=== PATIENT | female | born 1980 | race Caucasian/White ===

== ENCOUNTER 2017-06-30 00:05 | Emergency (ER) | payer OTHER ==
[~2017-06-30] VITALS: Ht 172.7 cm; Wt 95.3 kg
[~2017-06-30 00:05] MED LIST changes: -BACTROBAN CREAM15 GM T; -DOXYCYCLINE HY100 M3 PO; -SEPTDS PO
[2017-06-30 00:14] VITALS: BP 147/98
[2017-06-30] MEDS ORDERED: BACTROBAN CREAM15 GM T (01:44)
[2017-06-30] MEDS ORDERED: SEPTDS PO (01:44)
[2017-06-30] MEDS ORDERED: DOXYCYCLINE HY100 M3 PO (01:44)
== END 2017-06-30 02:15 | disposition home or self-care (01) ==
LOC: ED 00:05
DX: L30.9 Dermatitis, unspecified (principal); F17.200 Nicotine dependence, unspecified, uncomplicated

== ENCOUNTER → 2017-06-30 | Outpatient (CLI) | payer OTHER ==
[~2017-06-30] MED LIST: ALBUTEROL0.09 MG/A2 IH; BACTROBAN CREAM15 GM T; DAYPRO600 M1 PO; DIFLUCAN150 MG PO; DOXYCYCLINE HY100 M3 PO; FLEXERIL10 MG PO; MEDROL DOSEPAK4 MG PO; MOTRIN600 MG PO; MOTRIN800 MG PO; NYSTATIN100000 U/M PO; PEN-VEE K500 MG PO; PERCOCET 325 MG1 TA2 PO; PREDNICOT10 MG PO; ROBAXIN750 MG PO; SEPTDS PO; TRAMADOL HCL50 MG; TRIMOX500 MG PO; ULTRAM50 MG PO; VIBRAMYCIN100 MG PO; VICODIN 5/500 505 MG PO; VICODIN 500 MG-1 TAB PO; VICODIN ES 7501 TAB PO
[2017-06-30 12:16] LABS: HEMATOCRIT 40.2 % (37.0-47.0); HEMOGLOBIN 13.7 g/dl (12.0-16.0); MEAN CELL VOLUME 90.7 fl (81.0-99.0); MEAN CORPUSCULAR HGB 30.9 pg (27.0-31.0); MEAN CORPUSCULAR HGB CONC 34.1 g/dl (33.0-37.0); RED BLOOD COUNT 4.43 10*6/uL (4.10-5.10); RED CELL DISTRI WIDTH 12.5 % (0-14.5); WHITE BLOOD COUNT 9.1 10*3/uL (4.8-10.8)
[2017-06-30 12:35] LABS: ALBUMIN 3.8 gm/dl (3.1-4.5); ALKALINE PHOSPHATASE 59 U/L (45-117); BUN 11 mg/dl (7-24); CHLORIDE 104 mmol/L (98-107); CREATININE 0.87 mg/dL (0.55-1.02); POTASSIUM 3.5 mmol/L (3.5-5.1); SGOT/AST 29 IU/L (3-35); SODIUM 138 mmol/L (136-145); TOTAL PROTEIN 7.8 gm/dL (6.4-8.2)
[2017-06-30 12:39] LABS: SGPT/ALT 49 U/L (12-78)
[2017-07-01 08:11] LABS: HEPATITIS B SURFACE AG Negative (Negative); HIV 1+2 AB + HIV1 P24 AG Non Reactive (Non Reactive)
[2017-07-01 19:05] LABS: HCV LOG10 6.634 (.); HEPATITIS C QUANTITATION 4310000 IU/mL (.)
[2017-07-02 11:38] LABS: HEPATITIS C VIRUS ANTIBODY >11.0 s/co (0.0-0.9)
== END | disposition home or self-care (01) ==
LOC: LAB 11:57
PROVIDERS: Family Medicine
DX: B19.20 Unspecified viral hepatitis C without hepatic coma (principal); L03.90 Cellulitis, unspecified; R53.83 Other fatigue; Z20.5 Contact with and (suspected) exposure to viral hepatitis

== ENCOUNTER → 2017-07-02 | Outpatient (CLI) | payer OTHER ==
[~2017-07-02] MED LIST changes: +BACTROBAN CREAM15 GM T; +DOXYCYCLINE HY100 M3 PO; +SEPTDS PO
== END | disposition home or self-care (01) ==
LOC: LAB 13:12
DX: B19.20 Unspecified viral hepatitis C without hepatic coma (principal)

== ENCOUNTER 2022-09-25 13:02 | Emergency (ER) | payer OTHER ==
[~2022-09-25] VITALS: Ht 172.7 cm; Wt 127.0 kg
[2022-09-25 15:58] LABS: BILIRUBIN Negative (Negative); BLOOD Negative (Negative); CLARITY Clear (Clear); COLOR Yellow (Yellow); GLUCOSE Negative (Negative); KETONE Negative (Negative); LEUKO ESTERASE Negative (Negative); NITRITE Negative (Negative); SPECIFIC GRAVITY <= 1.005 (1.001-1.030); UROBILINOGEN 0.2 E.U./dl (0.0-1.0)
[2022-09-25 16:17] LABS: RBC 0-2 rbc/hpf (0-2); WBC 0-2 wbc/hpf (0-5)
[2022-09-25 16:26] LABS: HEMATOCRIT 46.9 % (37.0-47.0); MEAN CORPUSCULAR HGB 30.7 pg (27.0-31.0); MEAN CORPUSCULAR HGB CONC 34.1 g/dl (33.0-37.0); MEAN PLATELET VOLUME 10.2 fl (9.6-12.3); PLATELET COUNT AUTOMATED 222 10*3/uL (130-400); RED BLOOD COUNT 5.21 10*6/uL (4.10-5.10); RED CELL DISTRI WIDTH 12.1 % (0-14.5); WHITE BLOOD COUNT 7.1 10*3/uL (4.8-10.8)
[2022-09-25 16:41] LABS: ALKALINE PHOSPHATASE 61 U/L (46-116); BUN 8 mg/dl (9-23); CHLORIDE 103 mmol/L (98-107); CREATININE 0.61 mg/dL (0.55-1.02); LIPASE 21 U/L (12-53); POTASSIUM 4.1 mmol/L (3.4-5.1); SGPT/ALT 10 U/L (10-49); TOTAL PROTEIN 7.4 gm/dL (6.0-8.0)
[2022-09-25 16:55] LABS: MANUAL DIFF REFLEX YES
[2022-09-25 16:58] LABS: BURR CELLS FEW; PLATELET SUFFICIENCY NORMAL (NORMAL); TOTAL CELLS COUNTED 100 #CELLS
[2022-09-25 17:11] VITALS: BP 145/110
== END 2022-09-25 20:20 | disposition home or self-care (01) ==
LOC: ED 13:02
PROVIDERS: Physician Assistant
DX: R10.9 Unspecified abdominal pain (principal)

== ENCOUNTER 2023-01-08 19:29 | Emergency (ER) | payer SELFPAY ==
[~2023-01-08] VITALS: Ht 172.7 cm; Wt 129.3 kg
[2023-01-08 20:00] VITALS: BP 126/80
[2023-01-08] MEDS ORDERED: CIPRO500 MG PO (21:49)
[2023-01-08] MEDS ORDERED: IBUPROFEN600 MG PO (21:49)
== END 2023-01-08 22:04 | disposition home or self-care (01) ==
LOC: ED 19:29
DX: S91.332A Puncture wound without foreign body, left foot, initial encounter (principal); J45.909 Unspecified asthma, uncomplicated; Z98.890 Other specified postprocedural states; W22.8XXA Striking against or struck by other objects, initial encounter; Y93.89 Activity, other specified; Y92.89 Other specified places as the place of occurrence of the external cause; Y99.8 Other external cause status

== ENCOUNTER 2023-09-17 17:10 | Emergency (ER) | payer OTHER ==
[~2023-09-17] VITALS: Ht 172.7 cm; Wt 127.0 kg
[~2023-09-17 17:10] MED LIST changes: +CIPRO500 MG PO; +IBUPROFEN600 MG PO
[2023-09-17 17:36] VITALS: BP 138/82
[2023-09-17] MEDS ORDERED: METHADONE10 MG/1 M1 PO (17:58)
[2023-09-17] MEDS ORDERED: MEDROL DOSEPAK4 MG PO (18:49)
[2023-09-17] MEDS ORDERED: ZANAFLEX4 MG PO (18:49)
[2023-09-17] MEDS ORDERED: NAPROSYN500 MG PO (18:49)
== END 2023-09-17 18:56 | disposition home or self-care (01) ==
LOC: ED 17:10
DX: S39.012A Strain of muscle, fascia and tendon of lower back, initial encounter (principal); M79.652 Pain in left thigh; J45.909 Unspecified asthma, uncomplicated; Z98.890 Other specified postprocedural states; X58.XXXA Exposure to other specified factors, initial encounter; Y93.89 Activity, other specified; Y92.89 Other specified places as the place of occurrence of the external cause; Y99.8 Other external cause status

== ENCOUNTER 2023-11-21 23:14 | Emergency (ER) | payer OTHER ==
[~2023-11-21] VITALS: Ht 172.7 cm; Wt 122.5 kg
[~2023-11-21 23:14] MED LIST changes: +METHADONE10 MG/1 M1 PO; +NAPROSYN500 MG PO; +ZANAFLEX4 MG PO
[2023-11-21 23:31] VITALS: BP 149/82
[2023-11-21] MEDS ORDERED: Amoxicillin/Clavulanate Pota 875 MG TAB PO ONE (23:45)
[2023-11-21] MEDS ORDERED: AMOX-CLAV 875-1 EACH PO (23:45)
== END 2023-11-21 23:53 | disposition home or self-care (01) ==
LOC: ED 23:14
DX: K04.7 Periapical abscess without sinus (principal); K02.9 Dental caries, unspecified; J45.909 Unspecified asthma, uncomplicated; Z98.890 Other specified postprocedural states

== ENCOUNTER 2024-10-22 06:38 | Emergency (ER) | payer OTHER ==
[~2024-10-22] VITALS: Ht 172.7 cm; Wt 127.0 kg
[~2024-10-22 06:38] MED LIST changes: +AMOX-CLAV 875-1 EACH PO
[2024-10-22 07:11] VITALS: BP 146/81
[2024-10-22] MEDS ORDERED: DULOXETINE HCL60 MG PO (07:12)
[2024-10-22] MEDS ORDERED: PREDNISONE20 M1 PO (08:03)
[2024-10-22] MEDS ORDERED: AMOX-CLAV 875-1 EACH PO (08:03)
[2024-10-22] MEDS ORDERED: INHAL AID 1 KIT DEVICE DEVI SCH (10:00)
== END 2024-10-22 08:15 | disposition home or self-care (01) ==
LOC: ED 06:38
DX: J45.909 Unspecified asthma, uncomplicated (principal); H66.92 Otitis media, unspecified, left ear; R11.2 Nausea with vomiting, unspecified; F17.200 Nicotine dependence, unspecified, uncomplicated; F19.10 Other psychoactive substance abuse, uncomplicated; Z98.890 Other specified postprocedural states

== ENCOUNTER → 2024-12-29 | Outpatient (CLI) | payer OTHER ==
[~2024-12-29] MED LIST changes: +DULOXETINE HCL60 MG PO; +PREDNISONE20 M1 PO
[2024-12-29 09:19] LABS: BASO % 0.5 % (0.0-1.0); EOS # 0.4 10*3/uL (0.0-0.4); EOS % 5.3 % (1.0-4.0); HEMATOCRIT 41.7 % (37.0-47.0); MEAN CELL VOLUME 89.5 fl (81.0-99.0); MEAN CORPUSCULAR HGB 29.6 pg (27.0-31.0); MEAN CORPUSCULAR HGB CONC 33.1 g/dl (33.0-37.0); MEAN PLATELET VOLUME 9.3 fl (9.6-12.3); MONO # 0.6 10*3/uL (0.1-1.0); MONO % 6.9 % (3.0-9.0); NEUT # 3.9 10*3/uL (2.3-7.9); NEUT % 47.8 % (47.0-73.0); PLATELET COUNT AUTOMATED 238 10*3/uL (130-400); RED BLOOD COUNT 4.66 10*6/uL (4.10-5.10); RED CELL DISTRI WIDTH 12.9 % (0-14.5); WHITE BLOOD COUNT 8.3 10*3/uL (4.8-10.8)
[2024-12-29 09:28] LABS: BILIRUBIN Negative (Negative); BLOOD Negative (Negative); CLARITY Cloudy (Clear); COLOR Yellow (Yellow); GLUCOSE Negative (Negative); KETONE Negative (Negative); LEUKO ESTERASE Negative (Negative); NITRITE Negative (Negative)
[2024-12-29 09:44] LABS: ALKALINE PHOSPHATASE 64 U/L (46-116); BUN 12 mg/dl (9-23); CHLORIDE 102 mmol/L (98-107); POTASSIUM 3.8 mmol/L (3.4-5.1); SGPT/ALT 13 U/L (5-49); TOTAL PROTEIN 7.1 gm/dL (6.0-8.0)
[2024-12-30 05:06] LABS: IMMUNOGLOBULIN G, Qn 1257 mg/dL (586-1602); IMMUNOGLOBULIN M, Qn 111 mg/dL (26-217)
[2024-12-30 18:07] LABS: CCP ANTIBODIES IGG/IGA 19 units (0-19)
[2025-01-01 11:07] LABS: ANTI-DSDNA ANTIBODIES <1 IU/mL (0-9)
== END | disposition home or self-care (01) ==
LOC: LAB 08:32
PROVIDERS: ATTEND Internal Medicine Rheumatology
DX: M25.561 Pain in right knee (principal); M25.562 Pain in left knee; M13.0 Polyarthritis, unspecified; R76.8 Other specified abnormal immunological findings in serum; M35.3 Polymyalgia rheumatica

== ENCOUNTER 2025-02-28 04:52 | Emergency (ER) | payer OTHER ==
[2025-02-28 04:59] VITALS: BP 155/90
[2025-02-28] MEDS ORDERED: Lidocaine Hydrochloride 15 ML UDC PO ONE (05:00)
[2025-02-28] MEDS ORDERED: Acetaminophen/Hydrocodone 5 MG/325 MG TABLET PO ONE (05:00)
[2025-02-28] MEDS ORDERED: Ondansetron Hydrochloride 4 MG TAB SL ONE (05:00)
[2025-02-28] MEDS ORDERED: PENICILLIN V POTASSIUM 500 MG TAB PO ONE (05:00)
[2025-02-28] MEDS ORDERED: PENICILLIN VK500 MG PO (05:03)
== END 2025-02-28 05:17 | disposition home or self-care (01) ==
LOC: ED 04:52
DX: K02.9 Dental caries, unspecified (principal); J45.909 Unspecified asthma, uncomplicated; Z79.899 Other long term (current) drug therapy; Z98.890 Other specified postprocedural states

== ENCOUNTER 2025-03-29 08:04 | Emergency (ER) | payer OTHER ==
[~2025-03-29] VITALS: Ht 172.7 cm; Wt 127.0 kg
[~2025-03-29 08:04] MED LIST changes: +PENICILLIN VK500 MG PO
[2025-03-29 08:14] VITALS: BP 137/72
[2025-03-29] MEDS ORDERED: METHADONE HYDRO40 M1 PO (08:16)
[2025-03-29] MEDS ORDERED: Dexamethasone Sodium Phospha 20 MG/5 ML VIAL IM ONE (09:45)
[2025-03-29] MEDS ORDERED: MEDROL DOSEPAK4 MG PO (09:46)
[2025-03-29] MEDS ORDERED: Cyclobenzaprine Hydrochlorid 10 MG TAB PO ONE (09:50)
== END 2025-03-29 09:58 | disposition home or self-care (01) ==
LOC: ED 08:04
DX: M54.50 Low back pain, unspecified (principal); M62.838 Other muscle spasm; J45.909 Unspecified asthma, uncomplicated; Z79.899 Other long term (current) drug therapy; Z98.890 Other specified postprocedural states

== ENCOUNTER 2025-07-03 23:38 | Emergency (ER) | payer OTHER ==
[~2025-07-03] VITALS: Ht 172.7 cm; Wt 122.5 kg
[~2025-07-03 23:38] MED LIST changes: +METHADONE HYDRO40 M1 PO
[2025-07-03 23:47] VITALS: BP 143/79
[2025-07-04] MEDS ORDERED: METHOCARBAMOL 750 MG TAB PO ONE (00:05)
[2025-07-04] MEDS ORDERED: PREDNISONE20 M1 PO (00:13)
[2025-07-04] MEDS ORDERED: METHOCARBAMOL750 M1 PO (00:13)
== END 2025-07-04 00:25 | disposition home or self-care (01) ==
LOC: ED 23:38
DX: M54.31 Sciatica, right side (principal); J45.909 Unspecified asthma, uncomplicated; F17.210 Nicotine dependence, cigarettes, uncomplicated; Z87.440 Personal history of urinary (tract) infections; Z98.890 Other specified postprocedural states

== ENCOUNTER 2025-07-28 23:27 | Emergency (ER) | payer OTHER ==
[~2025-07-28 23:27] MED LIST changes: +METHOCARBAMOL750 M1 PO
[2025-07-28 23:40] VITALS: BP 145/77
[2025-07-28] MEDS ORDERED: MELOXICAM15 MG PO (23:53)
[2025-07-28] MEDS ORDERED: Amoxicillin/Clavulanate Pota 875 MG TAB PO ONE (23:55)
== END 2025-07-29 00:10 | disposition home or self-care (01) ==
LOC: ED 23:27
DX: K04.7 Periapical abscess without sinus (principal); K02.9 Dental caries, unspecified; J45.909 Unspecified asthma, uncomplicated; F17.290 Nicotine dependence, other tobacco product, uncomplicated; Z98.890 Other specified postprocedural states

== ENCOUNTER 2025-09-05 23:39 | Emergency (ER) | payer OTHER ==
[~2025-09-05 23:39] MED LIST changes: +MELOXICAM15 MG PO
[2025-09-05 23:58] VITALS: BP 141/73
[2025-09-06] MEDS ORDERED: Amoxicillin/Clavulanate Pota 875 MG TAB PO ONE (00:05)
[2025-09-06] MEDS ORDERED: AMOX-CLAV 875-1 EACH PO (00:10)
== END 2025-09-06 00:27 | disposition home or self-care (01) ==
LOC: ED 23:39
DX: S39.012A Strain of muscle, fascia and tendon of lower back, initial encounter (principal); K02.9 Dental caries, unspecified; K08.89 Other specified disorders of teeth and supporting structures; J45.909 Unspecified asthma, uncomplicated; Z98.890 Other specified postprocedural states; X58.XXXA Exposure to other specified factors, initial encounter; Y93.89 Activity, other specified; Y92.89 Other specified places as the place of occurrence of the external cause; Y99.8 Other external cause status